=== PATIENT | female | born 2000 | race Caucasian/White ===

== ENCOUNTER 2020-02-16 00:55 | Emergency (ER) | payer OTHER ==
[~2020-02-16] VITALS: Ht 167.6 cm; Wt 59.0 kg
[~2020-02-16 00:55] MED LIST: NOHOMEMEDICATIONS
[2020-02-16] MEDS ORDERED: SERTRALINE HCL50 MG PO (01:09)
[2020-02-16] MEDS ORDERED: LARIN1 EACH PO (01:10)
[2020-02-16 02:35] LABS: URINE BILIRUBIN NEGATIVE (Negative); URINE BLOOD 1+ (Negative); URINE CLARITY CLEAR; URINE COLOR YELLOW; URINE GLUCOSE-RANDOM NEGATIVE (Negative); URINE KETONES NEGATIVE (Negative); URINE LEUKOCYTES-REFLEX NEGATIVE (Negative); URINE NITRITE-REFLEX NEGATIVE (Negative); URINE PROTEIN NEGATIVE (Negative); URINE UROBILINOGEN 0.2 E.U./dl (0.2-1.0)
[2020-02-16 03:04] LABS: ABSOLUTE EOSINOPHILS 0.1 thou/uL (0.0-0.7); ABSOLUTE LYMPHOCYTES 2.3 thou/uL (0.8-5.3); ABSOLUTE MONOCYTES 0.5 thou/uL (0.0-1.2); ABSOLUTE NEUTROPHILS 3.5 thou/uL (1.6-8.1); BASOPHILS 0.4 %; EOSINOPHILS 1.8 %; HEMATOCRIT 41.4 % (37.0-47.0); HEMOGLOBIN 14.1 gm/dL (12.0-15.0); LYMPHOCYTES 35.5 %; MCH 29.8 pg (26.0-34.0); MCHC 34.1 g/dL (28.0-37.0); MCV 87.3 fL (80.0-100.0); MONOCYTES 7.5 %; MPV 7.9 fl. (7.2-11.1); NUCLEATED RBCS 0 /100WBC; PLATELET COUNT* 272 thou/uL (150-400); POLYS 54.8 %; RBC 4.75 mil/uL (4.20-5.00); WBC 6.5 thou/uL (4.0-11.0)
[2020-02-16 03:07] LABS: CALCIUM 9.1 mg/dL (8.5-10.1); CREATININE 1.1 mg/dL (0.6-1.3); POTASSIUM 3.8 mmol/L (3.5-5.1)
[2020-02-16 03:11] LABS: ALBUMIN 4.3 g/dL (3.4-5.0); TOTAL BILIRUBIN 0.3 mg/dL (<0.1-1.0); TOTAL PROTEIN 7.7 g/dL (6.4-8.2)
[2020-02-16 03:42] LABS: BACTERIA-REFLEX 1-9 Few /HPF (None Seen); CASTS None Seen /LPF (None Seen); CRYSTALS None Seen /LPF (None Seen); SQUAMOUS 4-10 Moderate /LPF (0-3); URINE RBC 0-2 Rare /HPF (0-2); URINE WBC-REFLEX None Seen /HPF (0-5)
[2020-02-16] MEDS ORDERED: PREVACID30 MG PO (04:16)
[2020-02-16] MEDS ORDERED: CARAFATE 1 GM TA1 GM PO (04:16)
[2020-02-16 04:26] VITALS: BP 118/70
--- NOTE | 2020-02-16 15:40 | EKG ---
[place] [address] ELECTROCARDIOGRAM REPORT Name: PASTORA ELIZALDE Room: [facility]#: [id number] Admission: 02/16/20 Attend Phys: Discharge: 02/16/20 Date of : [birth year] Date of Service: 02/16/20101 Report #: [id number] THIS REPORT FOR: //name// [facility] ED Test Date: 2020-02-16 Test Time: 01:02:27 Pat Name: PASTORA ELIZALDE Department: Room: Gender: Farmer [employer]: : 2000 Requested By: Berenice Mcpherson Order Number: [id number] MD: Xander Farrell Measurements Intervals Adah Rate: 82 P: 67 LA: 113 QRS: 68 QRSD: 95 T: 49 QT: 376 QTc: 439 Interpretive Statements Sinus rhythm Borderline short LA interval No previous ECG available for comparison Electronically Signed On 02-16-2020 15:39:53 CDT by Xander Farrell [email or web address] <ELECTRONICALLY SIGNED> By: Xander Farrell MD, [facility] 02/16/20 1539 1 1 Xander Farrell MD, FACC /EPI
== END 2020-02-16 04:26 | disposition home or self-care (01) ==
LOC: M.ERS 00:55
PROVIDERS: Personal Emergency Response Attendant
DX: K22.4 Dyskinesia of esophagus (principal); K58.9 Irritable bowel syndrome, unspecified